=== PATIENT | female | born 1995 | race Caucasian/White ===

== ENCOUNTER 2017-04-18 20:59 | Emergency (ER) | payer BC ==
[2017-04-18 21:45] VITALS: BP 142/82
[2017-04-18] MEDS ORDERED: Amoxicillin/Clavulanate TAB* 875 MG PO ONE (22:00)
--- NOTE | 2017-04-18 22:18 | UC ---
Lower Extremity/Ankle HPI - HPI Summary HPI Summary: LEFT GREAT TOE, INGROWN NAIL. WORSENING OVER LAST FOUR DAYS. NO FEVER. SMALL AMOUNT OF DISCHARGE FROM NAIL. NO TRAUMA. NO HIOSTORY OF SIMILAR CONCERNS. TETANUS UTD. - History of Current Complaint Chief Complaint: DMITRIYkin Stated Complaint: INGROWN NAIL ON BIG TOE - LEFT FOOT Time Seen by Provider: 04/18/17 21:44 Hx Obtained From: Patient Hx Last Menstrual Period: 04/08/17 Onset/Duration: Gradual Onset, Lasting Days, Still Present Severity Initially: Mild Severity Currently: Mild Aggravating Factor(s): Ambulation Able to Bear Weight: Yes - Risk Factors Gout Risk Factors: Negative DVT Risk Factors: Negative Septic Arthritis Risk Factor: Negative - Allergies/Home Medications Allergies/Adverse Reactions: Allergies Allergy/AdvReac Type Severity Reaction Status Date / Time No Known Allergies Allergy Verified 04/18/17 21:45 Home Medications: Home Medications Oral Contraceptive 1 tab PO DAILY 04/18/17 [History] PMH/Surg Hx/FS Hx/Imm Hx Previously Healthy: Yes - Surgical History Surgical History: Yes Surgery Procedure, Year, and Place: left ankle. right knee - Family History Known Family History: Negative: Diabetes - Social History Occupation: Student Lives: With Family Alcohol Use: None Substance Use Type: None Smoking Status (MU): Never Smoked Tobacco Review of Systems Constitutional: Negative Skin: Other - INGROWN NAIL LEFT GREAT TOE Eyes: Negative ENT: Negative Respiratory: Negative Cardiovascular: Negative Gastrointestinal: Negative Genitourinary: Negative Motor: Negative Neurovascular: Negative Musculoskeletal: Negative Neurological: Negative Psychological: Negative Is Patient Immunocompromised?: No All Other Systems Reviewed And Are Negative: Yes Physical Exam Triage Information Reviewed: Yes Appearance: Well-Appearing, No Pain Distress, Well-Nourished Vital Signs: Initial Vital Signs Temp 98.1 F 04/18/17 21:41 Pulse 83 04/18/17 21:41 Resp 14 04/18/17 21:41 BP 142/82 04/18/17 21:41 Pulse Ox 100 04/18/17 21:41 Vital Signs Reviewed: Yes Eye Exam: Normal ENT Exam: Normal ENT: Positive: Normal ENT inspection, TM dull Dental Exam: Normal Neck exam: Normal Neck: Positive: Supple, Nontender Respiratory Exam: Normal Respiratory: Positive: Chest non-tender, Lungs clear, Normal breath sounds, No respiratory distress, No accessory muscle use Cardiovascular Exam: Normal Cardiovascular: Positive: RRR, No Murmur, Pulses Normal Abdominal Exam: Normal Musculoskeletal Exam: Normal Neurological Exam: Normal Psychological Exam: Normal Skin: Positive: Other - LEFT TOENAIL INGROWN WITH SCANT DISCHARGE AND SMALL AMOUNT OF ERRYTHEMA AT LATERAL CUTICLE Lower Extremity Course/Dx - Differential Dx/Diagnosis Differential Diagnosis/HQI/PQRI: Gout, Infection, Sprain, Strain Provider Diagnoses: LEFT GREAT TOENAIL INGROWN Discharge - Discharge Plan Condition: Stable Disposition: HOME Prescriptions: Amoxicillin/Clavulanate TAB* [Augmentin TAB 875*] 875 mg PO BID #20 tab Patient Education Materials: Ingrown Nail (ED) Referrals: Harman WAGGONER,[place] [Doctor of Podiatric Medicine] -
== END 2017-04-18 22:25 | disposition home or self-care (01) ==
LOC: UCCORT 20:59
DX: L60.0 Ingrowing nail (principal)
CPT/HCPCS: 87070; 87205; 87640; 87641; 99202; A9270-GY; G0463